=== PATIENT | female | born 1965 | race African-American/Black ===

== ENCOUNTER 2019-03-18 20:19 | Emergency (ER) | payer OTHER ==
[2019-03-18 21:10] VITALS: BP 145/82; PULSE 75; TEMP 97.8; BMI 27.1
--- NOTE | 2019-03-18 21:38 | PDOC ---
History of Present Illness - General Chief Complaint: Allergic Reaction Stated Complaint: ALLERGIC REACTION Time Seen by Provider: 03/18/19 21:25 History Source: Patient - History of Present Illness Timing/Duration: reports: other Location: reports: extremities, face, other (palms), torso Past History - Past Medical History Allergies/Adverse Reactions: Allergies Allergy/AdvReac Type Severity Reaction Status Date / Time No Known Allergies Allergy Verified 03/18/19 21:10 Home Medications: Ambulatory Orders Ibuprofen [Motrin -] 600 mg PO QID #28 tablet 03/16/15 Loratadine [Claritin] 10 mg PO DAILY #14 tablet 03/18/19 COPD: No - Psycho Social/Smoking Cessation Hx Smoking History: Never smoked Have you smoked in the past 12 months: No Information on smoking cessation initiated: No Hx Alcohol Use: No Drug/Substance Use Hx: No Substance Use Type: None Review of Systems - Review of Systems Constitutional: No: Chills, Fever Integumentary: Yes: Pruritus, Rash *Physical Exam - Vital Signs Last Vital Signs Temp Pulse Resp BP Pulse Ox 97.8 F 75 17 145/82 100 03/18/19 20:35 03/18/19 20:35 03/18/19 20:35 03/18/19 20:35 03/18/19 20:35 - Physical Exam General Appearance: Yes: Appropriately Dressed. No: Apparent Distress HEENT: positive: Normal Voice Neck: positive: Supple Respiratory/Chest: negative: Respiratory Distress Integumentary: positive: Dry, Warm, Rash (multipel flesh colored oneill shaped papules w/ central core to face, trunk, upper/lower exts and palms suspicious for molluscum) Neurologic: positive: Fully Oriented, Alert, Normal Mood/Affect Medical Decision Making - Medical Decision Making 03/18/19 21:29 53-year-old female, no known past medical history and no known food drug or environmental allergies, here w/ pruritic rash. Patient states 2 to 3 weeks ago she developed generalized pruritus that resolved on its own and that 4 days ago pruritus re-occurred but now notices rash as well. Has not taken anything for symptoms. No obvious inciting factors. No history of similar episode. 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 Discharge - Discharge Information Problems reviewed: Yes Clinical Impression/Diagnosis: Rash Condition: Good Disposition: HOME - Additional Discharge Information Prescriptions: Loratadine [Claritin] 10 mg PO DAILY #14 tablet - Follow up/Referral Referrals: Kaylene Wagner MD [Primary Care Provider] - Katie Mariscal MD [Staff Physician] - - Patient Discharge Instructions Additional Instructions: Cause of your rash is unclear at this time and you will need further evaluation with dermatology. Please call Dr. Mariscal tomorrow to make an appointment In the meantime we did send off some blood work and you can call for results tomorrow. Call [phone] starting at 10 AM tomorrow - Post Discharge Activity
[2019-03-18 22:03] LABS: BASO % 1.2 % (0-2.0); EOS % 4.1 % (0-4.5); HEMATOCRIT 37.3 % (32.4-45.2); HEMOGLOBIN 12.6 GM/dL (10.7-15.3); LYMPH % 45.6 % (8-40); MCH 30.4 pg (25.7-33.7); MCHC 33.8 g/dl (32.0-36.0); MEAN CELL VOLUME 90.1 fl (80-96); MEAN PLT VOLUME 8.7 fl (7.5-11.1); MONO % 8.3 % (3.8-10.2); NEUT % 40.8 % (42.8-82.8); PLATELET COUNT 341 K/MM3 (134-434); RBC 4.14 M/mm3 (3.60-5.2); RDW 13.9 % (11.6-15.6); WHITE BLOOD COUNT 5.9 K/mm3 (4.0-10.0)
[2019-03-18 22:25] LABS: BILIRUBIN,TOTAL 0.5 mg/dL (0.2-1); BLOOD UREA NITROGEN 16.6 mg/dL (7-18); CREATININE 0.9 mg/dL (0.55-1.3); TOT PROT 7.8 g/dl (6.4-8.2)
== END 2019-03-18 21:50 | disposition home or self-care (01) ==
LOC: JERFT 20:19
DX: R21 Rash and other nonspecific skin eruption (principal)
CPT/HCPCS: 36415; 80053; 85025; 86593; 87389; 99281-25